=== PATIENT | male | born 1960 | race Caucasian/White ===

== ENCOUNTER 2024-03-16 05:48 | Observation (INO) ==
--- NOTE | 2024-03-08 08:45 | Anesthesiology Consultation ---
Date of Service March 08, 2024 Assessment & Plan (1) Encounter for pre-operative examination: Plan - check BSG and BMP STAT am DOS. Fluid orders to anesthesiologist review of BMP DOS. - Per property assessment monitor on 02/27/24: No known infectious disease contacts, current infectious disease symptoms in past 10 days or COVID positive test result in the past 30 days. Chart Review Chart Review: Acceptable Risk for Surgery and Patient NOT seen in Pre Admission Testing History Surgery Operation Date: 03/16/24 07:30 Proposed Procedures p Insertion of Intrathecal Catheter and Medication Administration Pump System - Claude Ashby MD, FIPP Height/Weight Height: 5 ft 9 in Weight: 94.801 kg Allergies Allergy/AdvReac Type Severity Reaction Status Date / Time No Known Allergies Allergy Verified 02/27/24 09:40 Medications Home Medications Medication Instructions Recorded Confirmed Last Taken acetaminophen 500 mg tablet 1,000 mg PO Q6H PRN Pain 06/12/22 02/27/24 12/21/23 (Tylenol Extra Strength) bisacodyl 5 mg tablet,delayed 5 mg PO DAILY PRN constipation 06/12/22 02/27/24 12/21/23 release (Dulcolax (bisacodyl)) insulin NPH isoph U-100 human 100 10 unit subcut HS 06/12/22 02/27/24 12/21/23 19:00 unit/mL (3 mL) subcutaneous pen (Novolin N FlexPen) lisinopril 10 1 tab PO QAM 06/12/22 02/27/24 12/23/23 06:30 mg-hydrochlorothiazide 12.5 mg tablet pantoprazole 20 mg tablet,delayed 20 mg PO QAM 06/12/22 02/27/24 12/23/23 06:30 release prednisolone acetate 1 % eye 1 drp ophthalmic (eye) QAM 06/12/22 02/27/24 12/23/23 06:30 drops,suspension oxycodone 5 mg capsule 10 mg PO Q4H PRN Pain 07/16/23 02/27/24 12/23/23 00:00 insulin NPH isoph U-100 human 100 40 unit subcut QPM 12/23/23 02/27/24 12/22/23 14:00 unit/mL (3 mL) subcutaneous pen timolol 0.25 % eye drops 1 drp ophthalmic (eye) 12/23/23 02/27/24 12/22/23 19:00 baclofen 10 mg tablet 10 mg PO BID PRN pain/spasm #60 01/14/24 02/27/24 Unknown tabs levetiracetam 1,000 mg tablet 1,000 mg PO BID #60 tabs 02/09/24 02/27/24 Unknown Spirit 360 1 tab PO HS 02/27/24 02/27/24 Unknown cholecalciferol (vitamin D3) 25 75 mcg PO QAM 02/27/24 02/27/24 Unknown mcg (1,000 unit) tablet (Vitamin D3) lidocaine 5 % topical patch 1 patch topical DAILY PRN Pain 02/27/24 02/27/24 Unknown (Lidoderm) tamsulosin 0.4 mg capsule 0.4 mg PO QAM 02/27/24 02/27/24 Unknown Past Medical History Medical History (Updated 03/08/24 @ 08:39 by Doris Segura PA-C) Chronic pain Diabetes IDDM History of anesthesia reaction difficulty urinating post surgery, physician placed pt. 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/not needed Hypertension Peripheral neuropathy Spinal stenosis Past Surgical History Surgical History History of back surgery x5 spine stimulator (in 3-4 years, then removed) [facility] lumbar (due to spinal stenosis) [facility] below shoulder blades - [facility] Intrathecal Pain Pump Trial 12/23/23 - [facility] Hx of arthroscopic knee surgery right Hx of bilateral cataract extraction Hx of cardiac catheterization (2020) [facility], "small heart attack" No blockages - no traffic control supervisor at present/not needed Hx of eye surgery x3 on right eye detached retina right eye Cornea transplant Cataract Hx of foot surgery nerve decompression, right side Social History Smoking Status: Never smoker Do You Dip or Chew Tobacco: Yes (1 can per month (advised)) Hx Alcohol Use: Yes Alcohol type: beer alcohol intake frequency: holidays/special occasions only Hx Substance Use: No substance use type: does not use Testing Laboratory Results 03/04/24 WBC: 4.4 H/H: PLATELETS: 184,000 UA: negative Electrocardiogram Date: 03/04/24 Sinus rhythm, rate 67 bpm Left axis deviation Low QRS voltage in precordial leads Poor R wave progression Stress Test Date: 02/16/21 Lexiscan Small fixed area of moderately intense perfusion defect involving the inferior wall, consistent with prior infarction No reversible defects consistent with ischemia LVEF 73% Cardiac Catheterization Date: 02/23/21 Left main: no angiographically significant disease LAD: no angiographically significant disease LCx: no angiographically significant disease RCA: no angiographically significant disease No significant epicardial CAD
--- NOTE | 2024-03-15 15:22 | History & Physical Report ---
Date of Service March 15, 2024 Assessment & Plan (1) Lumbar post-laminectomy syndrome: (2) Chronic pain: (3) Peripheral neuropathy: (4) Chronic SI joint pain: (5) Depressive disorder: (6) Opioid dependence: (7) Diabetes: (8) HTN (hypertension): Plan 1. Due to the patient's failure of multiple prior treatments and ongoing poor pain control with oral opiate therapies and limited daytime activities, it has been recommended that he undergo a permanent implantation of intrathecal hydromorphone pump and catheter delivery system as he has undergone a successful hydromorphone trial providing 55 to 60% pain relief. Patient has successfully completed behavioral health intervention over the past 7-9 months. He remains committed to behavioral health. All of the side effects and benefits of this procedure were discussed at length with the patient. He elects to proceed with the procedure which will be carried out at [facility] OR on 03/16/2024. Due to his urinary hesitancy noted during the trial the patient has been initiated on tamsulosin 0.4 mg daily over the past 1 month. Postop care at 1 week in 2 weeks through the pain clinic. He will then return to Dr. Mena for ongoing care of his intrathecal pump. History of Present Illness Chief Complaint: Intractable low back pain secondary to lumbar postlaminectomy syndrome Primary Care Provider: YARELI Purcell Mr. Montiel is a 63-year-old white male who is known to the [facility] pain service due to his history of chronic intractable low back pain secondary to lumbar postlaminectomy syndrome.Patient has history of ongoing axial low back pain greater than 15 years on chronic opiate therapy over that s chetan timeframe. He has had multiple lumbar surgical procedures most recently approximately 8-9 years ago as well as a history of spinal cord stimulator implantation and subsequent removal due to ineffectiveness. Patient indicates his pain is 70-80% axial in the lumbar region and 20-30% radicular in the bilateral anterior thighs left greater than right-sided. Patient rates his pain a 6-9/10 at all times. He describes the pain as aching and episodically sharp. Patient has minimal relief from his chronic opiate therapy most recently utilizing Oxy IR 10 mg every 4 hours. He has significant interference of his ability complete daytime activities due to his pain. He has previously failed multiple prior treatments including physical therapy, chiropractic mutilation, prior injection therapy, massage therapy, multiple lumbar surgeries, spinal cord stimulator implantation/removal, ice, heat, NSAIDs, acetaminophen, duloxetine, tramadol, gabapentin, Lidoderm patch, Lyrica, oral steroids, medical marijuana and compounding cream. He remains involved with behavioral health on an ongoing basis for treatment of his comorbid mood disorder. Patient underwent a successful hydromorphone trial on 12/23/2023 in which he reported 50-60% relief of his typical pain for duration of the trial with mild nausea and some difficulty with urinary hesitancy but denied urinary retention. It is therefore been recommended that he follow through with permanent implantation of intrathecal pump and catheter delivery system in an attempt to mitigate his chronic pain, improve daytime functionality and diminish side effects of oral opiate therapy. Plan of care discussed with Dr. Ashby. Allergies Allergy/AdvReac Type Severity Reaction Status Date / Time No Known Allergies Allergy Verified 02/27/24 09:40 Home Medications Medication Instructions Recorded Confirmed Type acetaminophen 500 mg tablet 1,000 mg PO Q6H PRN Pain 06/12/22 02/27/24 History (Tylenol Extra Strength) bisacodyl 5 mg tablet,delayed 5 mg PO DAILY PRN constipation 06/12/22 02/27/24 H istory release (Dulcolax (bisacodyl)) insulin NPH isoph U-100 human 100 10 unit subcut HS 06/12/22 02/27/24 History unit/mL (3 mL) subcutaneous pen (Novolin N FlexPen) lisinopril 10 1 tab PO QAM 06/12/22 02/27/24 History mg-hydrochlorothiazide 12.5 mg tablet pantoprazole 20 mg tablet,delayed 20 mg PO QAM 06/12/22 02/27/24 History release prednisolone acetate 1 % eye 1 drp ophthalmic (eye) QAM 06/12/22 02/27/24 History drops,suspension oxycodone 5 mg capsule 10 mg PO Q4H PRN Pain 07/16/23 02/27/24 History insulin NPH isoph U-100 human 100 40 unit subcut QPM 12/23/23 02/27/24 History unit/mL (3 mL) subcutaneous pen timolol 0.25 % eye drops 1 drp ophthalmic (eye) HS 12/23/23 02/27/24 History baclofen 10 mg tablet 10 mg PO BID PRN pain/spasm #60 01/14/24 02/27/24 Rx tabs levetiracetam 1,000 mg tablet 1,000 mg PO BID #60 tabs 02/09/24 02/27/24 Rx Spirit 360 1 tab PO HS 02/27/24 02/27/24 History cholecalciferol (vitamin D3) 25 75 mcg PO QAM 02/27/24 02/27/24 History mcg (1,000 unit) tablet (Vitamin D3) lidocaine 5 % topical patch 1 patch topical DAILY PRN Pain 02/27/24 02/27/24 History (Lidoderm) tamsulosin 0.4 mg capsule 0.4 mg PO QAM 02/27/24 02/27/24 History Past Med/Surg History Problem List (Updated 03/08/24 @ 08:39 by Doris Segura PA-C) Encounter for pre-operative examination Depressive disorder Chronic SI joint pain Peripheral neuropathy Opioid dependence Lumbar post-laminectomy syndrome Opioid use Chronic pain Diabetes HTN (hypertension) Medical History Chronic pain Diabetes IDDM History of anesthesia reaction difficulty urinating post surgery, physician placed pt. on Flomax prophylactic History of COVID-19 (09/2022) x 2 mild, resolved Hx of myocardial infarction (2020) "very small heart attack on the bottom of my heart due to a medication my doctor prescribed for inflammation" Had cardiac cath, no stents, no type caster at present/not needed Hypertension Peripheral neuropathy Spinal stenosis Surgical History History of back surgery x5 spine stimulator (in 3-4 years, then removed) [facility] lumbar (due to spinal stenosis) [facility] below shoulder blades - [facility] Intrathecal Pain Pump Trial 12/23/23 - [facility] Hx of arthroscopic knee surgery right Hx of bilateral cataract extraction Hx of cardiac catheterization (2020) [facility], "small heart attack" No blockages - no type caster at present/not needed Hx of eye surgery x3 on right eye detached retina right eye Cornea transplant Cataract Hx of foot surgery nerve decompression, right side Social History Smoking Status: Never smoker Tobacco Type: Smokeless Tobacco (Dip or Chew) Second Hand Exposure: No; Do You Dip or Chew Tobacco: Yes (1 can per month (advised)); Hx Alcohol Use: Yes Alcohol type: beer Alcohol Intake Frequency: 2-3 x/Week Alcohol Intake Frequency Comment: 6 pack a week Hx Substance Use: No Preferred Language: [place] Communication Ability: Effective Visual Impairment: No Limitations Hearing Ability: Normal 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 Beliefs That Will Affect Care: None marital status: Current Living Situation: Spouse current occupational status: retired How many Children do You have: 2 Feels Safe at Home: Yes Assistive Devices: Glasses Review of Systems Review of Systems: Constitutional: Negative for fever, chills, sweats Eyes: Negative for eye pain, photophobia, drainage Ear, nose, mouth, throat: Negative for ear pain, nasal congestion, mouth lesions, change in voice Respiratory: Negative for wheezing, sputum production Cardiovascular: Negative for chest pain, palpitations, calf pain Gastrointestinal: Negative for abdominal pain, belching, bloating Genitourinary: Negative for dysuria, urinary incontinence, urinary urgency Musculoskeletal: Negative for deformities Integumentary: Negative for nail changes, skin yellowing, pruritus Neurological: Negative for abnormal speech, seizure type activity Physical Exam Physical Exam: General: Patient sitting quietly in exam room in no acute distress. Speech and thought process appropriate. Mood and affect appropriate. Cognition intact. Patient somewhat hard of hearing but communication was effective. Patient is accompanied by his . Head: Normocephalic and atraumatic. ENT: No evidence of nasal or oral mucosal lesions. Mucous membranes are moist. Eyes: Pupils equal round reactive to light. Neck: Supple without adenopathy and full range of motion. Chest: Nontender to palpation of the costosternal junction. Abdomen: Soft and nondistended. No organomegaly. Bowel sounds active. Cardiac: Regular rate and rhythm without murmur. Back/spine: Loss of lumbar lordosis with multiple well-healed midline surgical incisions. Nontender over the midline. No focal facet joint tenderness to provocative testing. Range of motion limited in all planes. He is moderately tender to provocative testing over the SI joints bilaterally slightly right greater than left-sided. Minimally tender throughout the gluteal musculature. No appreciable spasm or minor trigger points. Lower extremities: SLR negative bilaterally with slight increase in axial pain appreciated. Strength testing 4+/5 throughout without focal deficit. Sensation intact without deficit. Patient with some hyperalgesia over the left anterior thigh. Thigh thrust testing was positive. Kassie maneuver was equivocal bilaterally. Strength testing 4/5 on the left with knee extension and hip flexion when compared to the right at 5/5. All other strength is 5/5 and equal bilaterally. Neurologic: Cranial nerves grossly intact. Gait is slowed and guarded with use of a single-point cane.
[~2024-03-16 05:48] MED LIST: ceFAZolin 2000MG 2,000 MG/15 ML SYR IV SCH
[2024-03-16] MEDS: LACTATED RINGER'S 1,000 ML IV SCH (06:38)
[2024-03-16 06:56] LABS: Calcium 9.8 mg/dl (8.6-10.3); Creatinine Clr Calc Pharmacy 79.3 ml/min; Est GFR (African American) 85.3 ml/min; Est GFR (Non-African American) 73.6 ml/min; Potassium 3.9 mmol/L (3.5-5.1)
[2024-03-16] MEDS ORDERED: fentaNYL citrate PF 100 MCG/2 ML VIAL ONE ×2 (07:00→08:34)
[2024-03-16] MEDS ORDERED: MIDAZOLAM HCL 1 MG/ML 2ML VIAL ONE ×2 (07:00→10:26)
[2024-03-16] MEDS ORDERED: ONDANSETRON INJ 2 MG/ML 2 ML VIAL IV PRN (07:09)
[2024-03-16] MEDS ORDERED: ATROPINE SULFATE 0.1 MG/ML 10ML SYR IV PRN (07:09)
[2024-03-16] MEDS ORDERED: ePHEDrine sulfate 50 MG/ML AMP IV PRN (07:09)
--- NOTE | 2024-03-16 07:15 | History & Physical Bridge Note ---
Date of Service March 16, 2024 History & Physical Bridge Note History & Physical Bridge Note Eric Montiel is a 64-year-old male with a history of chronic postprocedural pain after he underwent multiple lumbar spine surgery. He experiences predominantly axial low back pain with ADLs and has failed multiple conservative therapy including medication management, chronic opiate therapy, physical therapy and interventional procedure he ultimately underwent intrathecal trial of opiate with excellent efficacy and no side effects. Patient is scheduled today for implantation of intrathecal medication delivery system with infusion of hydromorphone. Patient's past medical history, surgical history, medication and allergy list has been reviewed and no changes noted since his last history and physical examination performed. Review of systems is negative for any cardiac, pulmonary, GI, , endocrine or acute neurological complaints other than what is listed in the HPI section. Physical exam: GENERAL: Patient appears his stated age. Speech and cognition is intact. Mood and affect is appropriate. Sensorium is clear. He is in no acute distress. HEAD: Normocephalic; atraumatic. EYES: Pupils are round.sclera anicteric mucous membranes moist and pink. No oral lesions noted. ENT: No external ear discharge or lesions. No rhinorrhea or epistaxis. No mucosal lesions. NECK: Full ROM. Trachea is midline. CARDIAC: Regular rate and rhythm. CHEST: Regular chest respiration and excursion. ABDOMEN: No organomegaly appreciated. Bowel sounds are hypoactive. EXTREMITIES: Full ROM Distal sensation and pulses intact bilaterally. BACK: Loss of lumbar lordosis. NEURO: Sensation and motor strength testing is unremarkable. SKIN: No lesions, erythema, or rashes noted. ASSESSMENT: Chronic postprocedural pain from multiple lumbar spine surgery and postlaminectomy syndrome. RECOMMENDATIONS: Implantation of intrathecal medication delivery system with hydromorphone infusion after successful intrathecal trial. History reviewed, examination performed, pertinent laboratory and imaging akiko dies reviewed. No contraindications noted to proceeding with the proposed procedure. Potential risks including infection, bleeding, hematoma, nerve injury, persistent back pain, injury to the spinal cord, dural puncture with persistent cerebrospinal fluid leak, post dural puncture headache which may require additional interventional procedures to treat were discussed with the patient in detail. Alternative treatments were also discussed. Patient's questions were answered and gives informed consent to proceed with the proposed procedure.
[2024-03-16] MEDS: ceFAZolin 2000MG 2,000 MG/15 ML SYR IV SCH (07:43)
[2024-03-16] MEDS ORDERED: LIDOCAINE 2% 20 MG/ML 5 ML SYR IV ONE (08:15)
[2024-03-16] MEDS ORDERED: DEXAMETHASONE SOD INJ 4 MG/ML VIAL ONE (08:15)
[2024-03-16] MEDS ORDERED: ROCURONIUM BROMIDE 10 MG/ML 5 ML VIAL IV ONE (08:15)
[2024-03-16] MEDS ORDERED: PROPOFOL IV EMULSION 10 MG/ML 20 ML VIAL IV ONE (08:15)
[2024-03-16] MEDS ORDERED: ONDANSETRON INJ 2 MG/ML 2 ML VIAL ONE (08:15)
[2024-03-16] MEDS ORDERED: ePHEDrine sulfate 50 MG/5 ML SYR ONE (08:27)
[2024-03-16] MEDS ORDERED: SUGAMMADEX SODIUM 200 MG/2 ML VIAL IV ONE (08:37)
[2024-03-16] MEDS: HYDROmorphone PAIN PUMP--Supplied by Pain Clinic IT SCH (08:45)
[2024-03-16] MEDS: IOPAMIDOL INJ 61% 15 ML VIAL INSTIL ONE (08:47)
[2024-03-16] MEDS: LIDOCAINE 2%/EPINEPHRINE 1:100,000 20ML INFIL ONE (08:57)
[2024-03-16] MEDS ORDERED: MAGNESIUM CITRATE 296 ML/BTL PO PRN (10:14)
[2024-03-16] MEDS ORDERED: NALOXONE HCL 0.4 MG/1 ML VIAL/CARP IV PRN (10:14)
--- NOTE | 2024-03-16 10:14 | Operative Report ---
PG Post Operative Report Pre & Post Diagnosis Operation Date: 03/16/24 07:30 Pre-Op Diagnosis: 1. Chronic postprocedural pain 2. lumbar Post-Laminectomy Syndrome Post-Op Diagnosis: 1. Chronic postprocedural pain 2. lumbar Post-Laminectomy Syndrome I identified the patient and participated in the time-out.: Yes Procedure Operation Date: 03/16/24 07:30 Actual Procedures 1. Insertion of Intrathecal Catheter and Medication Administration Pump System 2. Intraoperative catheter study Claude Ashby MD, GORGE Surgeon Claude Ashby MD, GORGE Quilt Sewer Cass Crawley PA-C Estimated Blood Loss 10 Findings Consistent with Post-Op Diagnosis Specimens None Drains None Anesthesia Type General Complications none Disposition Accompanied Patient To Recovery: No Disposition: Recovery Room Indications INTRATHECAL DRUG DELIVERY SYSTEM IMPLANTATION OPERATIVE REPORT PREOPERATIVE DIAGNOSIS: Chronic postprocedural pain from lumbar laminectomy syndrome POSTOPERATIVE DIAGNOSIS: Same. PROCEDURE: 1. Insertion of intrathecal catheter under fluoroscopic guidance. 2. Implantation of intrathecal pump. 3. Catheter access port study. 4. Intrathecal pump refill. 5. Postoperative reprogramming of intrathecal drug delivery system pump. INDICATIONS: Chronic axial low back pain after lumbar laminectomy surgeries COMPLICATIONS: None ANESTHESIA: General. DESCRIPTION OF PROCEDURE: The patient had a successful intrathecal trial and agreed to intrathecal pump insertion. Prior to starting, the Patients diagnosis and the procedure were reviewed with the patient in detail. Possible risks and complications including infection, bleeding, damage to surrounding structures and increased pain were discussed. Alternative therapies were also reviewed. Patients questions were answered and they agreed to proceed. Informed consent was obtained. Allergies and medication list was reviewed. Biplanar fluoroscopy was used to assist in placement of the needle as well as to evaluate the final needle and catheter positions. The patient was brought to the operating room and general anesthesia was induced by members of the department. Patient was then placed in right lateral decubitus position. Immediately prior to starting the procedure, a ``time out was conducted with the staff where the patient was identified, proposed procedure was verified, consent was reviewed and the proper site for the planned procedure was identified. Preoperative antibiotics for prophylaxis were given through the IV. On examination, no signs of skin breakdown or infection were noted at the injection site. The site was cleansed with DuraPrep followed by Betadine. Sterile drapes were applied in the usual fashion. Using biplanar fluoroscopy an 18-gauge spinal needle was used to gain access to the intrathecal sac at L3/L4 interspace. Clear free cerebral spinal fluid flow was noted without any blood. [employer] intrathecal catheter was passed through the needle under fluoroscopic guidance and the tip was positioned at T10 level. Stylet was removed and free CSF flow was aspirated. Using a scalpel, 1-1/2 inch midline incision was made surrounding the intrathecal needle. Hemostasis was achieved using electro cautery. The epidural catheter was secured to the dorso-lumbar fascia with 2 purse string 0-0 silk ties. Then the spinal needle was removed and a [employer] butterfly anchor to secure the catheter to the underlying supraspinous ligament was utilized to secure the catheter. Free CSF flow from the intrathecal catheter after anchoring of the catheter to the fascia. Then in the left lower quadrant a pocket for the intrathecal pump was made using scalpel to skin incision and electro cautery for the deeper layers. A passer was used to transfer the intrathecal pump catheter underneath the skin and subcutaneous tissues through a 1/2 cm incision in the left flank and then subsequently to the pocket. After transfer of the end of the catheter to the pocket incision aspiration of the intrathecal catheter revealed free CSF flow. Both pocket and midline axial thoracic incisions were irrigated with 3 bulb syringes full of sterile normal saline with bacitracin. Hemostasis was achieved. The intrathecal pump was filled was rinsed and filled with hydromorphone, 1 mg/ml concentration per protocol. The intrathecal catheter was not trimmed. The suture-less connector was connected to the end the intrathecal pump and aspiration from of the end of the catheter was free-flowing. It was then connected to the intrathecal pump using the connecting device. The intrathecal pump was anchored in the pocket with 4-0 Prolene sutures. No complications were noted after the intrathecal pump was placed inside the pocket. Both wounds were irrigated with bacitracin-containing normal saline. Both wounds were closed in similar fashion using continuous 0 antibiotic-loaded STRATAFIX suture for deeper layer and running 3-0 antibiotic-loaded STRATAFIX suture for subcuticular layer. Prineo to the skin. 4 x 4 gauze and pressure dressing was applied to both sites. Abdominal binder was placed. No complications were noted throughout the procedure. The patient tolerated the procedure and general anesthesia without obvious complications.. Patient was allowed to emerge from anesthesia at the end of the procedure and transferred back to the stretcher. Patient was transported to the recovery room in stable condition. The patient will follow up with our clinic within 7 days for a wound check and then plan to have the sudha removed at day 14. Pump size inserted: 20 ml Level of catheter: T10 Catheter trimmed to: 0 cm Medication placed in pump: Hydromorphone 1 mg/ml to run at simple continuous rate of 0.1 mg/day Description of Procedure INTRATHECAL DRUG DELIVERY SYSTEM IMPLANTATION INTRAOPERATIVE CATHETER DYE STUDY PREOPERATIVE DIAGNOSIS: Chronic postprocedural pain secondary to lumbar post laminectomy syndrome. POSTOPERATIVE DIAGNOSIS: Same. PROCEDURE: 1. Insertion of intrathecal catheter under fluoroscopic guidance. 2. Implantation of intrathecal pump. 3. Catheter access port study. 4. Intrathecal pump refill. 5. Postoperative reprogramming of intrathecal drug delivery system pump. INDICATIONS: Mr. Montiel is a 4-year-old male experiencing axial low back pain after multiple lumbar spine surgery COMPLICATIONS: ANESTHESIA: General. DESCRIPTION OF PROCEDURE: The patient had a successful intrathecal trial and agreed to intrathecal pump insertion. Prior to starting, the Patients diagnosis and the procedure were reviewed with the patient in detail. Possible risks and complications including infection, bleeding, damage to surrounding structures and increased pain were discussed. Alternative therapies were also reviewed. Patients questions were answered and they agreed to proceed. Informed consent was obtained. Allergies and medication list was reviewed. Biplanar fluoroscopy was used to assist in placement of the needle as well as to evaluate the final needle and catheter positions. The patient was brought to the operating room and general anesthesia was induced by members of the department. Patient was then placed in right lateral decubitus position position. Immediately prior to starting the procedure, a ``time out was conducted with the staff where the patient was identified, proposed procedure was verified, consent was reviewed and the proper site for the planned procedure was identified. Preoperative antibiotics for prophylaxis were given through the IV. On examination, no signs of skin breakdown or infection were noted at the injection site. The site was cleansed with DuraPrep followed by Betadine. Sterile drapes were applied in the usual fashion. Using biplanar fluoroscopy an 18-gauge spinal needle was used to gain access to the intrathecal sac at L3/L4 interspace. Clear free cerebral spinal fluid flow was noted without any blood. [employer] intrathecal catheter was passed through the needle under fluoroscopic guidance and the tip was positioned at T10 level. Stylet was removed and free CSF flow was aspirated. Using a scalpel, 1-1/2 inch midline incision was made surrounding the intrathecal needle. Hemostasis was achieved using electro cautery. The epidural catheter was secured to the dorso-lumbar fascia with 2 purse string 0-0 silk ties. Then the spinal needle was removed and a [employer] butterfly anchor to secure the catheter to the underlying supraspinous ligament was utilized to secure the catheter. Free CSF flow from the intrathecal catheter after anchoring of the catheter to the fascia. Then in the left lower quadrant a pocket for the intrathecal pump was made using scalpel to skin incision and electro cautery for the deeper layers. A passer was used to transfer the intrathecal pump catheter underneath the skin and subcutaneous tissues through to the small incision left flank and subsequently to the pocket incision. After transfer of the end of the catheter to the pocket incision aspiration of the intrathecal catheter revealed free CSF flow. Both pocket and midline axial thoracic incisions were irrigated with 3 bulb syringes full of sterile normal saline with bacitracin. Hemostasis was achieved. The intrathecal pump was filled was rinsed and filled with hydromorphone, 1 mg/ml per protocol. Mesorectal with 20 mL. The intrathecal catheter not was trimmed and the catheter was implanted. The suture-less connector was connected to the end the intrathecal pump and aspiration from of the end of the catheter was free- flowing. It was then connected to the intrathecal pump using the connecting device. The intrathecal pump was anchored in the pocket with 4-0 Prolene sutures. No complications were noted after the intrathecal pump was placed inside the pocket. The flank incision was closed with sudha and 4 x 4 gauze dressing was applied to it. Both wounds were irrigated with bacitracin-containing normal saline. Both wounds were closed in similar fashion using continuous 0 antibiotic-loaded STRATAFIX suture for deeper layer and running 3-0 antibiotic-loaded STRATAFIX suture for subcuticular layer. Prineo to the skin. Aquacel dressing was applied to both sites. Abdominal binder was placed. No complications were noted throughout the procedure. The patient tolerated the procedure and general anesthesia without obvious complications.. Patient was allowed to emerge from anesthesia at the end of the procedure and transferred back to the stretcher. Patient was transported to the recovery room in stable condition. The patient will follow up with our clinic within 7 days for a wound check and then plan to have the sudha removed at day 14. Pump size inserted: 20 ml Level of catheter: T10 Catheter trimmed to: [] cm Medication placed in pump: [] [] mg/ml to run at [] mg/day
[2024-03-16] MEDS ORDERED: NO NARCOTICS OR SEDATIVES SCH (10:15)
[2024-03-16] MEDS ORDERED: LIDOCAINE 5% 1 PATCH TD PRN (10:19)
[2024-03-16] MEDS ORDERED: bisacodyL 5 MG TABEC PO PRN (10:19)
[2024-03-16] MEDS ORDERED: ACETAMINOPHEN 500 MG TAB PO PRN (10:19)
[2024-03-16] MEDS ORDERED: DexMEDEtomidine HCL IV 100 MCG/ML VIAL IV ONE (10:21)
[2024-03-16] MEDS: fentaNYL citrate PF 100 MCG/2 ML VIAL IV PRN (10:55)
[2024-03-16] MEDS: ONDANSETRON INJ 2 MG/ML 2 ML VIAL IV PRN (10:59)
[2024-03-16] MEDS: HYDROmorphone INJ 2 MG/ML SYR/VIAL IV PRN (11:05)
[2024-03-16] MEDS: PROMETHAZINE HCL 6.25 MG in SODIUM CHLORIDE 0.9% 50 ML IV STA (11:12)
--- NOTE | 2024-03-16 11:46 | Anesthesiology Progress Note ---
Date of Service March 16, 2024 Anesthesia Post Procedure Vital Signs Vital Signs: Temp Pulse Pulse Resp BP Pulse Ox O2 Del Method 03/16/24 11:30 36.4 C L 79 14 165/76 H 99 Nasal Cannula 03/16/24 11:20 88 16 151/101 H 92 Nasal Cannula 03/16/24 11:10 88 14 133/99 96 Nasal Cannula 03/16/24 11:00 99 H 16 136/85 99 Nasal Cannula 03/16/24 10:50 98 H 14 126/94 100 Room Air 03/16/24 10:40 93 H 16 157/100 H 99 Oxymask 03/16/24 10:30 36 C L 79 18 120/74 98 Oxymask 03/16/24 06:27 37.1 C 62 18 165/89 H 97 Room Air O2 Flow Rate 03/16/24 11:30 3 03/16/24 11:20 3 03/16/24 11:10 3 03/16/24 11:00 3 03/16/24 10:50 03/16/24 10:40 6 03/16/24 10:30 6 03/16/24 06:27 Pain Intensity Lower Back: Pain Intensity: 7 Transfer of Care Handoff Completed per policy Notes Mental Status: alert / awake / arousable and participated in evaluation Patient Amnestic to Procedure: Yes Nausea / Vomiting: adequately controlled Pain: adequately controlled Airway Patency, RR, SpO2: stable & adequate BP & HR: stable & adequate Hydration State: stable & adequate Anesthetic Complications: no major complications apparent and Pt Satisfied with anesthetic care
[2024-03-16] MEDS ORDERED: GLUCAGON FOR INJ 1 MG VIAL IM PRN (12:45)
[2024-03-16] MEDS ORDERED: CARBOHYDRATES FOR HYPOGLYCEMIA PO PRN (12:45)
[2024-03-16] MEDS ORDERED: GLUCOSE 40% GEL 15 GM TUBE PO PRN (12:45)
[2024-03-16] MEDS ORDERED: DEXTROSE 50% 50 ML SYRINGE IV PRN (12:45)
[2024-03-16] MEDS ORDERED: GLUCOSE 10 TAB/TUBE PO PRN (12:45)
[2024-03-16] MEDS: INSULIN HUMAN NPH SC SCH ×2 (13:15→20:29)
[2024-03-16] MEDS: PROMETHAZINE HCL INJ 25 MG/ML 1 ML VIAL ONE (13:36)
[2024-03-16] MEDS: HYDROCODONE/ACETAMOPHEN 5/325MG TAB PO PRN (13:44)
[2024-03-16] MEDS: DEXTROSE 50% 50 ML SYRINGE IV ONE (14:53)
[2024-03-16] MEDS: ACETAMINOPHEN 500 MG TAB PO PRN (14:56)
[2024-03-16] MEDS: BACLOFEN 10 MG TAB PO PRN (17:09)
[2024-03-16] MEDS: cefTRIAXone SODIUM 1,000 MG in DEXTROSE 5% 50 ML IV ONE (18:00)
[2024-03-16] MEDS: TAMSULOSIN HCL 0.4 MG CAP PO SCH (20:28)
[2024-03-16] MEDS: DOCUSATE SODIUM 100 MG CAP PO SCH (20:29)
[2024-03-16] MEDS: levETIRAcetam 500 MG TAB PO SCH (20:29)
[2024-03-16] MEDS: CETIRIZINE HCL 10 MG TABLET PO SCH (20:29)
[2024-03-16] MEDS: diphenhydrAMINE Capsule 25 MG CAP PO PRN (21:30)
[2024-03-16] MEDS: TIMOLOL MALEATE 0.25% OP SOLN 5 ML BTL OP SCH (21:30)
[2024-03-17] MEDS: prednisoLONE acetate 1% OP SUSP 5 ML BTL OP SCH (08:07)
[2024-03-17] MEDS: PANTOprazole 40 MG TAB PO SCH (08:09)
[2024-03-17] MEDS: LISINOPRIL/HCTZ 10/12.5MG TAB PO SCH (08:09)
[2024-03-17] MEDS: CHOLECALCIFEROL 25 MCG (1000 UNITS) TAB PO SCH (08:09)
--- NOTE | 2024-03-17 08:42 | Pain Management Progress Note ---
Date of Service March 17, 2024 Assessment & Plan (1) Lumbar post-laminectomy syndrome: (2) Chronic pain: Chronic pain type: chronic pain syndrome Qualified Code(s): G89.4 - Chronic pain syndrome (3) Peripheral neuropathy: (4) Chronic SI joint pain: (5) Depressive disorder: (6) Opioid dependence: (7) Diabetes: (8) HTN (hypertension): Plan 1. Chronic pain has improved with the implantation of the intrathecal pump and catheter delivery system containing Hydromorphone. He is receiving Hydromorphone 0.1mg/day currently. No dose adjustments were made. 2. Wound checks in the pain clinic office scheduled for 03/23/24 and 03/30/24 at 1PM with myself Cass Crawley PA-C 3. Continue to wear abdominal binder 21/04 x 4 weeks, then only during physical activity x 4 additional weeks. 4. Change small incision with dress dressing daily. No care necessary for abdomen and back midline incisions. 5. Thoracolumbar xray ordered to ensure proper placement of catheter. Patient is ready for discharge to home. Admission and Anticipated Discharge Date Admission Date: March 16, 2024 Subjective Mr. Montiel is status post implantation of an intrathecal pump and catheter delivery system. He is reporting complete pain relief of left leg pain. Peripheral neuropathy and chronic low back pain has improved by about 70%. Patient is able to walk around the room and down the halls without any issue. Pain is currently rated 2/10. He has taken Hydrocodone 5/325mg x 2 for post operative pain. There is mild pulling at his incisions when he is stretching. Able to void last evening and this morning without issue. No fevers, chills, nausea, vomiting, abdominal pain, urinary sx, flank pain, rashes. Physical Exam Physical Exam: GENERAL: This is a 64 year old male in no acute distress. HEAD/FACE: Normocephalic and atraumatic. EYES: No drainage or conjunctival injection. ENT: Nose without bleeding or discharge. Oral mucosa moist. NECK: Full ROM without apparent pain. No swelling or masses noted. RESPIRATORY: Patient with unlabored breathing. No signs of respiratory distress. CHEST/AXILLA: Chest movement symmetrical. No deformities noted. ABDOMEN/GI: Intrathecal pump is located in the left lower abdomen with Aquacel dressing in place. No erythema, warmth drainage noted. BACK: Aquacel dressing along the thoracolumbar region. There are #4 sudha along a small incision just along the left of the midline - dry dressing was changed. SKIN: [place], warm and dry. No rash noted. MS/EXTREMITY: No swelling, no deformities. Moving extremities appropriately. NEURO: Alert and appears oriented. Speech is fluent. Cranial Nerves are grossly intact. PSYCH: Alert, pleasant, affect is calm
[2024-03-17] MEDS ORDERED: TAMSULOSIN HCL 0.4 MG CAP PO SCH (09:00)
--- NOTE | 2024-03-17 09:02 | Discharge Summary ---
Date of Service March 17, 2024 Admission HPI Per Admitting Provider Mr. Montiel is a 63-year-old white male who is known to the [facility] pain service due to his history of chronic intractable low back pain secondary to lumbar postlaminectomy syndrome.Patient has history of ongoing axial low back pain greater than 15 years on chronic opiate therapy over that same timeframe. He has had multiple lumbar surgical procedures most recently approximately 8-9 years ago as well as a history of spinal cord stimulator implantation and subsequent removal due to ineffectiveness. Patient indicates his pain is 70-80% axial in the lumbar region and 20-30% radicular in the jovan ateral anterior thighs left greater than right-sided. Patient rates his pain a 6-9/10 at all times. He describes the pain as aching and episodically sharp. Patient has minimal relief from his chronic opiate therapy most recently utilizing Oxy IR 10 mg every 4 hours. He has significant interference of his ability complete daytime activities due to his pain. He has previously failed multiple prior treatments including physical therapy, chiropractic mutilation, prior injection therapy, massage therapy, multiple lumbar surgeries, spinal cord stimulator implantation/removal, ice, heat, NSAIDs, acetaminophen, duloxetine, tramadol, gabapentin, Lidoderm patch, Lyrica, oral steroids, medical marijuana and compounding cream. He remains involved with behavioral health on an ongoing basis for treatment of his comorbid mood disorder. Patient underwent a successful hydromorphone trial on 12/23/2023 in which he reported 50-60% relief of his typical pain for duration of the trial with mild nausea and some difficulty with urinary hesitancy but denied urinary retention. It is therefore been recommended that he follow through with permanent implantation of intrathecal pump and catheter delivery system in an attempt to mitigate his chronic pain, improve daytime functionality and diminish side effects of oral opiate therapy. Plan of care discussed with Dr. Ashby. Admission Exam (Per Admitting) Constitutional WD/WN, vitals as above Eyes PERRL, conjunctivae normal, anicteric sclerae ENMT external ear and nose normal, oropharynx normal Neck trachea midline, no thyromegaly Respiratory normal respiratory effort, lungs clear to auscultation Cardiovascular RRR, no murmur, no edema Chest (Breasts) normal inspection/palpation of breasts Gastrointestinal (Abdomen) normal bowel sounds, soft, nontender, no hepatosplenomegaly Musculoskeletal no cyanosis or clubbing, extremities motor strength 5/5 Skin no rashes, warm and dry Neurologic patellar DTR's 2+ bilat, sensation intact Psychiatric A+Ox3, euthymic affect Discharge Data Procedures Performed Operation Date: 03/16/24 07:30 Actual Procedures p Insertion of Intrathecal Catheter and Medication Administration Pump System(Left) - Claude Ashby MD, [facility] Hospital Course (1) Opioid dependence: (2) Lumbar post-laminectomy syndrome: (3) Chronic pain: (4) Peripheral neuropathy: (5) Chronic SI joint pain: Plan Patient underwent an implantation of an intrathecal pump and catheter delivery system containing Hydromorphone to treat chronic pain and doing well post operatively. He will be discharged to home and follow up in the pain clinic for 1 and 2 week wound checks. Discharge Instructions * Change the dressing on the left low back once a day with dry gauze and tape. No care necessary of the abdominal and back dressings * Wear abdominal binder 21/04 x 4 weeks * Continue psychiatry appointments * Follow up in the office for 1 and 2 week wound checks
--- NOTE | 2024-03-17 14:52 | XRay Report ---
THORACOLUMBAR SPINE 2 VIEWS CLINICAL HISTORY: Intrathecal pump catheter placement. FINDINGS: AP and lateral views of the thoracolumbar spine are correlated with lumbar spine radiograph s dated 06/12/2022. The skeletal structures are osteopenic. There is no radiographic evidence of acute fracture or malalignment. Vertebral body height and alignment appear maintained throughout the image d thoracolumbar spine. There is postsurgical change of laminectomy and posterior fusion at L3-L5. Int erpedicular screws are in place. There has been discectomy at L4-L5. Severe disc space narrowing with endplate sclerosis is seen at L2-L3. The transverse processes are grossly intact. A pain pump device is located in the soft tissues of the left lower quadrant. Imaged portions of the catheter appear in tact. This likely enters the central canal at L2. The intrathecal portions of the catheter are not we ll-visualized. The tip terminates at the level of T10. The visualized bony pelvis appears intact. Deg enerative sclerosis is seen in the sacroiliac joints. There is no bowel obstruction. Clips project ov er the left midabdomen. IMPRESSION: 1. A pain pump device/catheter is in place as above. Imaged portions of the catheter appear intact. N ote that the intrathecal portions are not well assessed. 2. The tip of the catheter terminates at T10. 3. Osteopenia with degenerative and postsurgical change in the imaged thoracolumbar spine as above. Dictated: 03/17/2024 9:35 AM Transcribed: 03/17/2024 10:04 AM Fidencio [id number] [email or web address] Electronically signed by: Jacques Cha M.D. 03/17/2024 2:51 PM
== END 2024-03-17 10:12 | disposition home or self-care (01) ==
LOC: ASU 05:48 → PACUINP 05:48 → 4W 14:40
DX: M96.1 Postlaminectomy syndrome, not elsewhere classified; Z79.899 Other long term (current) drug therapy; F11.20 Opioid dependence, uncomplicated; I25.2 Old myocardial infarction; E11.42 Type 2 diabetes mellitus with diabetic polyneuropathy; I10 Essential (primary) hypertension; Z79.4 Long term (current) use of insulin; F32.A Depression, unspecified; G89.4 Chronic pain syndrome